=== PATIENT | female | born 1950 | race Caucasian/White ===

== ENCOUNTER 2018-09-07 17:40 | Observation (INO) ==
--- NOTE | 2018-09-07 17:53 | Emergency Department Note ---
Disposition Clinical Impression: TIA (transient ischemic attack) Disposition: Still a Patient Time of Disposition: 17:54 General Adult HPI - General Stated complaint: general illness Time Seen by Provider: 09/07/18 17:46 Source: patient, EMS Mode of arrival: EMS Limitations: no limitations Nursing Notes Reviewed: Yes Vital Signs Reviewed: Yes - History of Present Illness HPI Narrative: ED ATTESTATION NOTE: I examined this patient and my medical decision-making was reviewed with the Resident Physician/TILE TRIMMER/PA/Student. I have personally performed a face to face evaluation on this patient & I agree with the documented findings, disposition and treatment plan as described except to the extent set forth below. Patient was seen with emergency medicine resident Dr. Aamir Rede please see copy of his note for details of this encounter Briefly: 67-year-old female via EMS from [facility]. Patient presented with dizziness and slurred speech EMS report and unable to move legs patient arrived with an age of 1 prior history of TIA. At [facility] the CAT scan was down to the transporter here for further evaluation we will do a noncontrast head CT EKG screening labs with admission anticipated. Disposition pending. Patient stable. - Related Data Home Medications Medication Instructions Recorded Confirmed Amitriptyline [Elavil] 25 mg PO HS 04/30/15 04/30/15 Aspirin 81 mg PO DAILY 04/30/15 04/30/15 Clopidogrel [Plavix] 75 mg PO DAILY 04/30/15 04/30/15 Ezetimibe [Zetia] 10 mg PO DAILY 04/30/15 04/30/15 Furosemide [Lasix] 80 mg PO DAILY 04/30/15 04/30/15 Lisinopril [Zestril] 20 mg PO DAILY 04/30/15 04/30/15 Multivitamin [Multi-Day Vitamins] 1 tab PO DAILY 04/30/15 04/30/15 Omega3,5,6,7,9 No.1/[place] Oil 1 cap PO DAILY 04/30/15 04/30/15 [Complete [place] Softgel] Omeprazole [PriLOSEC] 40 mg PO DAILY 04/30/15 04/30/15 Ranolazine [Ranexa] 1,000 mg PO BID 04/30/15 04/30/15 Rosuvastatin [Crestor] 40 mg PO DAILY 04/30/15 04/30/15 Verapamil HCl [Verapamil ER] 240 mg PO DAILY 04/30/15 04/30/15 Allergies Allergy/AdvReac Type Severity Reaction Status Date / Time No Known Allergies Allergy Verified 04/30/15 11:41 Past Medical History - Past Medical History Medical history: Reports: coronary artery disease, dementia, hypertension Surgical history: Reports: cholecystectomy, hysterectomy, other - Social History Smoking Status: Former smoker Smokeless Tobacco Status: No Alcohol use: Reports: none Drug use: Reports: none
[2018-09-07 18:13] LABS: Basophils % 0.3 %; Eosinophils # 0.1 K/mcL (0.0-0.6); Eosinophils % 0.9 %; Hematocrit 38.6 % (35.3-44.9); Hemoglobin 12.7 g/dL (11.5-15.4); Immature Granulocytes % 0.4 % (0-4); Lymphocytes % 13.1 %; Mean Corpuscular HGB Conc 32.9 g/dL (31.6-35.5); Mean Corpuscular Hemoglobin 31.1 pg (28.0-33.3); Mean Corpuscular Volume 94.4 fL (83.0-100.0); Mean Platelet Volume 10.7 fL (9.4-12.4); Monocytes # 0.4 K/mcL (0.0-1.3); Monocytes % 4.6 %; Neutrophils # 6.1 K/mcL (1.6-8.9); Platelet Count 196 K/mcL (140-400); Red Blood Count 4.09 M/mcL (3.82-4.97); Red Cell Distribution Width 12.4 % (11.5-14.5); Segmented Neutrophils % 80.7 %
[2018-09-07 18:21] LABS: Prothrombin Time 11.6 Seconds (9.4-12.1)
--- NOTE | 2018-09-07 18:22 | Emergency Department Note ---
Disposition Clinical Impression: TIA (transient ischemic attack) Disposition: Admitted As Inpatient Condition: Undetermined Referrals: NONE,PCP [Primary Care Provider] - Forms: ED Satisfaction Letter Time of Disposition: 19:43 General Adult HPI - General Chief complaint: ED Neuro Symptoms/Deficit Stated complaint: general illness Time Seen by Provider: 09/07/18 17:46 Source: patient, EMS Mode of arrival: EMS Limitations: no limitations Nursing Notes Reviewed: Yes Vital Signs Reviewed: Yes - History of Present Illness HPI Narrative: 67-year-old female arrives to the emergency Department complaint of slurred speech and weakness as well as dizziness that started roughly 1530. The patient went to [place] emergency department and they were noted that her CT was down. The report received here at [facility] by [place] physician was that the patient was unable to ambulate and had no movement of her legs. Upon arrival via EMS to transport patient to the emergency part here and see because her CT machine was down, EMS noted the patient had an NIH of 0. The patient is not slurring her words and has full range of motion of bilateral upper and lower extremities without any other neurologic deficits. She is only complaining of some dizziness. Patient denies any other complaints at this time. She is lucid and answering questions appropriate. Initial evaluation the emergency department upon arrival demonstrates an NIH of 0. Pain Scale: 0 - Related Data Home Medications Medication Instructions Recorded Confirmed Amitriptyline [Elavil] 25 mg PO HS 04/30/15 04/30/15 Aspirin 81 mg PO DAILY 04/30/15 04/30/15 Clopidogrel [Plavix] 75 mg PO DAILY 04/30/15 04/30/15 Ezetimibe [Zetia] 10 mg PO DAILY 04/30/15 04/30/15 Furosemide [Lasix] 80 mg PO DAILY 04/30/15 04/30/15 Lisinopril [Zestril] 20 mg PO DAILY 04/30/15 04/30/15 Multivitamin [Multi-Day Vitamins] 1 tab PO DAILY 04/30/15 04/30/15 Omega3,5,6,7,9 No.1/[place] Oil 1 cap PO DAILY 04/30/15 04/30/15 [Complete [place] Softgel] Omeprazole [PriLOSEC] 40 mg PO DAILY 04/30/15 04/30/15 Ranolazine [Ranexa] 1,000 mg PO BID 04/30/15 04/30/15 Rosuvastatin [Crestor] 40 mg PO DAILY 04/30/15 04/30/15 Verapamil HCl [Verapamil ER] 240 mg PO DAILY 04/30/15 04/30/15 Allergies Allergy/AdvReac Type Severity Reaction Status Date / Time No Known Allergies Allergy Verified 04/30/15 11:41 All systems ED: reviewed and negative except as stated. Constitutional: Reports: weakness. Denies: fever, chills Eyes: Denies: vision change ENT ED: Denies: dental pain, congestion, dysphagia Cardiovascular: Denies: chest pain Respiratory: Denies: dyspnea Gastrointestinal: Denies: abdominal pain Genitourinary: Denies: urgency, dysuria Musculoskeletal: Denies: back pain Integumentary: Denies: rash Neurological: Denies: headache, weakness, numbness, paresthesias, confusion, a bnormal gait Past Medical History - Past Medical History Attestation: Yes The following information was validated with the patient. Source: patient, old records reviewed Medical history: Reports: coronary artery disease, dementia, hypertension Surgical history: Reports: cholecystectomy, hysterectomy, other MANAGER SWITCH history: Reports: no MANAGER SWITCH history - Social History Smoking Status: Former smoker Smokeless Tobacco Status: No Alcohol use: Reports: none Drug use: Reports: none Physical Exam - General Limitations: no limitations General appearance: alert, in no apparent distress - Head Head exam: atraumatic, normocephalic, normal inspection - Eye Eye exam: Present: normal appearance, PERRL, EOMI - ENT ENT exam: normal exam, normal oropharynx, mucous membranes moist - Neck Neck exam: Present: normal inspection, full ROM, trachea midline - Chest Chest inspection: Present: normal inspection, symmetric chest wall rise - Respiratory Respiratory exam: Present: normal lung sounds bilaterally - Cardiovascular Cardiovascular exam: Present: regular rate, normal rhythm, normal heart sounds - Abdominal Exam Abdominal exam: Present: soft, Non-Tender. Absent: tenderness, distention, guarding, rebound, rigidity - Extremities Exam Extremities exam: Present: normal inspection, full ROM, normal capillary refill. Absent: tenderness - Neurological Exam Neurological exam: Present: alert, oriented X3, CN II-XII intact - Expanded Neurological Exam Patient oriented to: Present: person, place, time Speech: Present: fluid speech Cranial nerves: EOM function (II, III, IV, ): Normal, facial sensation (V): Normal, facial palsy (VII): Normal Cerebellar function: finger to nose: Normal Motor strength - LUE: 5/5 Motor strength - RUE: 5/5 Motor strength - LLE: 5/5 Motor strength - RLE: 5/5 Sensory exam upper extremity: light touch: Normal Sensory exam lower extremity: light touch: Normal Coma Scale Eye Opening: Spontaneous Coma Scale Motor Response: Obeys Commands Coma Scale Verbal Response: Oriented Coma Scale Total: 15 - Skin Skin exam: Present: warm, dry, intact, normal color Course Vital Signs Temperature 97.9 F 09/07/18 17:49 Pulse Rate 59 09/07/18 17:49 Respiratory Rate 14 09/07/18 17:49 Blood Pressure 165/74 09/07/18 17:49 O2 Sat by Pulse Oximetry 99 09/07/18 17:49 Temperature 97.9 F 09/07/18 17:49 Pulse Rate 59 09/07/18 17:49 Respiratory Rate 14 09/07/18 17:49 Blood Pressure 165/74 09/07/18 17:49 O2 Sat by Pulse Oximetry 99 09/07/18 17:55 Oxygen Delivery Oxygen Delivery Room Air Medical Decision Making - MDM Narrative Medical decision making narrative: Patient's workup in our emergency department demonstrates no acute process. The patient has an NIH of 0. The patient was noted to have some slurring of speech dizziness as well as what is recorded at [facility] that she has weakness of bilateral extremity is present. Given this report hour was not confirmed with the patient, we are concerned about TIA. The patient will be admitted t will. We will administer aspirin. Head CT and lab work is otherwise baseline kidney injury. No further questions or concerns. She Will Be Admitted to the Hospital This Time. Accepted by Dr. Garcia. - Lab Data Lab results reviewed: Yes I reviewed the patient's lab results. Result diagrams: 09/07/18 17:58 09/07/18 17:58 Lab Results 09/07/18 09/07/18 09/07/18 Range/Units 17:58 17:58 17:58 WBC 7.5 (4.3-11.1) K/mcL RBC 4.09 (3.82-4.97) M/mcL Hgb 12.7 (11.5-15.4) g/dL Hct 38.6 (35.3-44.9) % MCV 94.4 (83.0-100.0) fL MCH 31.1 (28.0-33.3) pg MCHC 32.9 (31.6-35.5) g/dL RDW 12.4 (11.5-14.5) % Plt Count 196 (140-400) K/mcL MPV 10.7 (9.4-12.4) fL Immature Gran % 0.4 (0-4) % Seg Neutrophils % 80.7 % Lymphocytes % 13.1 % Monocytes % 4.6 % Eosinophils % 0.9 % Basophils % 0.3 % Neutrophils # 6.1 (1.6-8.9) K/mcL Lymphocytes # 1.0 (0.6-4.6) K/mcL Monocytes # 0.4 (0.0-1.3) K/mcL Eosinophils # 0.1 (0.0-0.6) K/mcL Basophils # 0.0 (0.0-0.2) K/mcL PT 11.6 (9.4-12.1) Seconds INR 1.0 APTT 31.5 (26.0-36.0) Seconds Sodium (136-145) mEq/L Potassium (3.5-5.1) mEq/L Chloride (98-107) mEq/L Carbon Dioxide (23-29) mEq/L BUN (8-23) mg/dL Creatinine (0.60-1.20) mg/dL Est GFR ( Amer) (> 60) Est GFR (Non-Af Amer) (> 60) BUN/Creatinine Ratio (6-26) Glucose (70-105) mg/dL Calculated Osmolality (280-300) Calcium (8.6-10.3) mg/dL Troponin I (< 0.04) ng/mL B-Natriuretic Peptide 74 (Less than 100) pg/mL 09/07/18 Range/Units 17:58 WBC (4.3-11.1) K/mcL RBC (3.82-4.97) M/mcL Hgb (11.5-15.4) g/dL Hct (35.3-44.9) % MCV (83.0-100.0) fL MCH (28.0-33.3) pg MCHC (31.6-35.5) g/dL RDW (11.5-14.5) % Plt Count (140-400) K/mcL MPV (9.4-12.4) fL Immature Gran % (0-4) % Seg Neutrophils % % Lymphocytes % % Monocytes % % Eosinophils % % Basophils % % Neutrophils # (1.6-8.9) K/mcL Lymphocytes # (0.6-4.6) K/mcL Monocytes # (0.0-1.3) K/mcL Eosinophils # (0.0-0.6) K/mcL Basophils # (0.0-0.2) K/mcL PT (9.4-12.1) Seconds INR APTT (26.0-36.0) Seconds Sodium 140 (136-145) mEq/L Potassium 3.5 (3.5-5.1) mEq/L Chloride 103 (98-107) mEq/L Carbon Dioxide 27 (23-29) mEq/L BUN 15 (8-23) mg/dL Creatinine 1.27 H (0.60-1.20) mg/dL Est GFR ( Amer) 51 L (> 60) Est GFR (Non-Af Amer) 42 L (> 60) BUN/Creatinine Ratio 12 (6-26) Glucose 106 H (70-105) mg/dL Calculated Osmolality 291 (280-300) Calcium 9.1 (8.6-10.3) mg/dL Troponin I < 0.03 (< 0.04) ng/mL B-Natriuretic Peptide (Less than 100) pg/mL - Radiology Data Radiology results reviewed: Yes I reviewed the patient's radiology results. Chest X-Ray 09/07/18 17:47 IMPRESSION: Stable exam. No acute cardiopulmonary findings. D/ / Veronica Harris MD / Veronica Harris MD Interpreting Provider: Veronica Harris MD Head CT 09/07/18 17:47 IMPRESSION: No acute intracranial abnormality. D/ / Caridad Thomas Cha, MD / Caridad Thomas Cha, MD Interpreting Provider: Caridad Thomas Cha, MD - EKG Data EKG #1 EKG attestation: Yes I reviewed and interpreted this EKG. EKG results narrative: Heart rate 55 beats for minute. Normal sinus rhythm. No ST elevation or ST depression. Inverted T waves in V1 and V2. No acute changes noted. QTC at 511.
[2018-09-07 18:24] LABS: Activated Partial Thrombo Time 31.5 Seconds (26.0-36.0)
[2018-09-07 18:34] LABS: BUN/Creatinine Ratio 12 (6-26); Blood Urea Nitrogen 15 mg/dL (8-23); Calcium 9.1 mg/dL (8.6-10.3); Carbon Dioxide 27 mEq/L (23-29); Chloride 103 mEq/L (98-107); Glucose 106 mg/dL (70-105); Osmolality,Calculated 291 (280-300); Potassium 3.5 mEq/L (3.5-5.1); Sodium 140 mEq/L (136-145); eGFR For Non-African Americans 42 (> 60)
[2018-09-07 18:35] LABS: Troponin I < 0.03 ng/mL (< 0.04)
[2018-09-07] MEDS ORDERED: Aspirin 325 MG TABLET PO ONE (19:14)
[2018-09-07] MEDS ORDERED: Naloxone 0.4 MG/ML INJ IVP PRN (23:02)
--- NOTE | 2018-09-07 23:41 | Internal Med History&Physical ---
Date of Encounter: 09/08/18 Time of Encounter: 22:00 Internal Medicine - H&P: HPI Chief complaint: Stroke Like Symptoms Admitted From: Hospital to Hospital Transfer Plans for Post Hospital Care: Home History of present illness: Ms. Brumfield is a 67 year old female with past medical history significant for coronary artery disease with stents 3, atrial fibrillation with previous ablation, hypertension, hyperlipidemia, TIA 3, chronic kidney disease, anxiety, depression, and dementia who presents from [facility] ER for complaints of slurred speech, difficulty ambulating, dizziness, headache that started around 11 AM today. Due to patients history of dementia, she is unable to fully recall her entire health history and reports being very forgetful despite being fully alert and oriented at this time. Symptoms resolved while at sending ER, however their CT scanner was down so she was sent to [facility] for further evaluation. Reports she has had previous TIAs in the past with similar symptoms. Symptoms remain resolved at this time however she states she still experiences intermittent dizziness with position changes and intermittent headache. ER obtained CT of head which showed no acute intracranial abnormality. ER also obtained chest x-ray which showed stable exam and no acute cardiopulmonary findings. ER reported NIHSS as a 0. ER reported EKG as sinus rhythm with no ST elevation or ST depression, inverted T waves in V1 and V2, with no acute changes noted, and QTc of 511. Currently denies any dizziness, numbness, tingling, chest pain, shortness of breath, cough, abdominal pain, bowel or bladder changes. Reports current intermittent headache. Also reports abdominal discomfort intermittently over the last 6 months but denies any at this time. Had previous inpatient workup in April 2015 for TIA vs syncope vs seizure including head MRI showing no acute intracranial abnormality or acute infarct. Had echocardiogram in January 2017 showing 60% EF. Had carotid doppler completed in April 2015 showing 40-59% stenosis of left mid ICA. Patient is unable to recall what providers she follows with regularly, however reports she frequently receives care through [facility] in [place], [place]. Checks blood pressures regularly at home and reports systolic has been averaging in the 120's. Past Med Surg Social Fam HX - Past Medical History Medical history: atrial fibrillation, coronary artery disease, dementia, hyperlipidemia, hypertension, renal disease Additional medical history: Cardiac stents x3 Psychiatric history: anxiety - Past Surgical History Surgical History: cholecystectomy, hysterectomy Additional surgical history: 3 cardiac stents, cardiac ablation for atrial fibrillation - Social History Smoking Status: Former smoker Smokeless Tobacco Status: No Alcohol use: none Drug use: none - Family History Mother Living Status: Hx Family Cardiac Disorders: Yes (cad) Father Living Status: Hx Family Respiratory Disorders: Yes (copd) Internal Medicine - H&P: Meds Amitriptyline [Elavil] 25 mg PO HS 04/30/15 [History] Aspirin 81 mg PO DAILY 04/30/15 [History] Clopidogrel [Plavix] 75 mg PO DAILY 04/30/15 [History] Ezetimibe [Zetia] 10 mg PO DAILY 04/30/15 [History] Furosemide [Lasix] 80 mg PO DAILY 04/30/15 [History] Lisinopril [Zestril] 20 mg PO DAILY 04/30/15 [History] Multivitamin [Multi-Day Vitamins] 1 tab PO DAILY 04/30/15 [History] Omega3,5,6,7,9 No.1/[place] Oil [Complete [place] Softgel] 1 cap PO DAILY 04/30/15 [History] Omeprazole [PriLOSEC] 40 mg PO DAILY 04/30/15 [History] Ranolazine [Ranexa] 1,000 mg PO BID 04/30/15 [History] Rosuvastatin [Crestor] 40 mg PO DAILY 04/30/15 [History] Verapamil HCl [Verapamil ER] 240 mg PO DAILY 04/30/15 [History] Allergy/AdvReac Type Severity Reaction Status Date / Time No Known Allergies Allergy Verified 04/30/15 11:41 All Systems PM: A 10-system review of systems was performed and is negative for pertinent findings except as documented above in the HPI. - Constitutional Vitals: Temp Pulse Resp BP Pulse Ox 98.0 F 56 16 181/76 97 09/07/18 21:32 09/07/18 21:32 09/07/18 21:32 09/07/18 21:32 09/07/18 21:32 Exam: General: Alert and oriented. Has chronic memory loss secondary to history of dementia. Skin:Normal color, no rash, no lesions. HEENT:Pupils equal, round and reactive. Cardiovascular:Normal S1 & S2, no rubs, murmurs or gallops. No JVD. Pulse regular. Lungs:Normal breath sounds, no wheezes or crackles. Abdomen:Soft, non-tender, no rigidity. Extremities:No deformity, no edema or tenderness, no joint swelling or clubbing. Neurological:Normal cognition and motor skills. GCS 15. NIHSS 0. Pulses:Carotid and radial pulses normal +2. Rest of the physical exam is non contributory. Internal Med - H&P Results - Labs CBC & Chem 7: 09/07/18 17:58 09/07/18 17:58 Labs: Short CBC 09/07/18 Range/Units 17:58 WBC 7.5 (4.3-11.1) K/mcL Hgb 12.7 (11.5-15.4) g/dL Hct 38.6 (35.3-44.9) % Plt Count 196 (140-400) K/mcL Neutrophils # 6.1 (1.6-8.9) K/mcL BMP 09/07/18 17:58 Sodium 140 Potassium 3.5 Chloride 103 Carbon Dioxide 27 BUN 15 Creatinine 1.27 H Glucose 106 H Calcium 9.1 Cardiac Enzymes 09/07/18 Range/Units 17:58 Troponin I < 0.03 (< 0.04) ng/mL - Impressions ITS Impressions Chest X-Ray 09/07/18 17:47 IMPRESSION: Stable exam. No acute cardiopulmonary findings. D/ / Veronica Harris MD / Veroinca Harris MD Interpreting Provider: Veronica Harris MD Head CT 09/07/18 17:47 IMPRESSION: No acute intracranial abnormality. D/ / Caridad Thomas Cha, MD / Caridad Thomas Cha, MD Interpreting Provider: Caridad Thomas Cha, MD - Assessment and Plan (1) Stroke-like symptoms Current Visit: Yes Status: Acute Assessment and plan: Presented to sending ER with slurred speech, headache, and dizziness that has since resolved. Now only complains of intermittent dizziness with position changes and headache. CT scanner down at sending ER so sent here, Head CT here showed no acute intracranial abnormality. Echocardiogram and carotid dopplers ordered. Neuro checks. Neurology consult ordered, will need called in a.m. (2) Dizziness Current Visit: Yes Status: Acute Assessment and plan: Acute on chronic. Plan as stated above. Orthostatics ordered. (3) Headache Current Visit: Yes Status: Acute Assessment and plan: Acute on chronic. Plan as stated above. PRN tylenol ordered. Qualifiers: Headache type: unspecified Intractability: not intractable Qualified Code(s): R51 - Headache (4) Chronic kidney disease Current Visit: Yes Status: Chronic Assessment and plan: Reports history of renal disease. Currently BUN 15, Creatinine 1.27, GFR 42. Most recent labs for comparison from 2016, shows renal function currently near baseline. Will order gentle IVF hydration. Avoid nephrotoxins. Repeat labs ordered. Qualifiers: Chronic kidney disease stage: unspecified stage Qualified Code(s): N18.9 - Chronic kidney disease, unspecified (5) Hypertension Current Visit: Yes Status: Chronic Assessment and plan: Continue home medications once verified. Qualifiers: Hypertension type: unspecified Qualified Code(s): I10 - Essential (primary) hypertension (6) Anxiety Current Visit: Yes Status: Chronic Assessment and plan: Continue home medications once verified. - Time Spent With Patient Total time spent is greater than 50% in coordination of care (as documented) at patient's floor/unit and/or counseling patient:
[2018-09-08] MEDS ORDERED: Acetaminophen 325 MG TABLET PO PRN (01:32)
[2018-09-08 03:16] LABS: Hematocrit 37.2 % (35.3-44.9); Hemoglobin 12.4 g/dL (11.5-15.4); Mean Corpuscular HGB Conc 33.3 g/dL (31.6-35.5); Mean Corpuscular Hemoglobin 31.5 pg (28.0-33.3); Mean Corpuscular Volume 94.4 fL (83.0-100.0); Mean Platelet Volume 10.5 fL (9.4-12.4); Platelet Count 192 K/mcL (140-400); Red Blood Count 3.94 M/mcL (3.82-4.97); Red Cell Distribution Width 12.4 % (11.5-14.5)
[2018-09-08 03:27] LABS: Prothrombin Time 11.5 Seconds (9.4-12.1)
[2018-09-08 03:37] LABS: Albumin 3.8 g/dL (3.5-5.7); Albumin/Globulin Ratio 1.7 (1.1-2.2); Bilirubin,Total 0.4 mg/dL (0.3-1.0); Calcium 8.8 mg/dL (8.6-10.3); Chol/HDL Ratio 2.5 (0-4.9); Globulin 2.2 g/dL (2.4-3.5)
[2018-09-08] MEDS ORDERED: 0.9 % Sodium Chloride 1,000 ML IVC SCH (06:00)
[2018-09-08 07:29] LABS: Estimated Average Glucose 108 mg/dl; Hemoglobin A1C 5.4 %
[2018-09-08 07:33] LABS: Calcium 8.8 mg/dL (8.6-10.3); Potassium 3.6 mEq/L (3.5-5.1)
[2018-09-08] MEDS: Aspirin 81 MG TAB.CHEW PO SCH (09:11)
--- NOTE | 2018-09-08 09:41 | Neurology - Consult Note ---
<Louie Brooks - Last Filed: 09/08/18 09:38> Date of Encounter: 09/08/18 Time of Encounter: 09:39 Assessment and Plan (1) Stroke-like symptoms Current Visit: Yes Status: Acute Presented with slurred speech, stuttering, ambulatory difficulty, dizziness, and headaches H/O TIAx3; Neuro consulted to r/o CVA/TIA Dizziness and stuttering persists Otherwise, neuro exam is nonfocal and nonlateralizing CT head obtained in the ED-negative for acute intracranial abnormality e.g. sinus rhythm without ST elevation or ST depression Proceed with stroke workup MRI brain pending Carotid duplex pending Echocardiogram pending On DAPT ASA and Plavix; continue C/w crestor Neuro assessments per protocol History of Present Illness Chief complaint: stroke-like symptoms HPI: Ms. Brumfield is a 67 year old female with a PMH of CAD w/PCI x3, A-FIB, HTN, HLD, TIAX3 CKD, anxiety and depression. She p/w a CC of stuttering with speech slurring, vertigo, ambulatory difficulties and headaches which began around 11 AM yesterday afternoon. She has a prior history of TIA but no CVA history. No family present at time of my assessment. The patient reports that her symptoms have improved significantly however dizziness and stuttering persists. She denies any visual changes, dysphagia, unilateral weakness or paresthesias. She reports that the dizziness is worse with position change and will go away with resting. CBC unremarkable, chemistry showed SCR around baseline. CT of head negative for acute intracranial abnormality. EKG shows normal sinus rhythm without ST-T wave changes concerning for ischemia. Troponin was negative. Neuro will follow to c/w w/u of CVA VS TIA. Past Med Surg Social Fam HX - Past Medical History Medical history: atrial fibrillation, coronary artery disease, dementia, hyperlipidemia, hypertension, renal disease Additional medical history: Cardiac stents x3 Psychiatric history: anxiety - Past Surgical History Surgical History: cholecystectomy, hysterectomy Additional surgical history: 3 cardiac stents, cardiac ablation for atrial fibrillation - Social History Smoking Status: Former smoker Smokeless Tobacco Status: No Alcohol use: none Drug use: none - Family History Mother Living Status: Hx Family Cardiac Disorders: Yes (cad) Father Living Status: Hx Family Respiratory Disorders: Yes (copd) Medications and Allergies Amitriptyline [Elavil] 25 mg PO HS 04/30/15 [History] Aspirin 81 mg PO DAILY 04/30/15 [History] Clopidogrel [Plavix] 75 mg PO DAILY 04/30/15 [History] Ezetimibe [Zetia] 10 mg PO DAILY 04/30/15 [History] Furosemide [Lasix] 80 mg PO DAILY 04/30/15 [History] Lisinopril [Zestril] 20 mg PO DAILY 04/30/15 [History] Multivitamin [Multi-Day Vitamins] 1 tab PO DAILY 04/30/15 [History] Omega3,5,6,7,9 No.1/[place] Oil [Complete [place] Softgel] 1 cap PO DAILY 04/30/15 [History] Omeprazole [PriLOSEC] 40 mg PO DAILY 04/30/15 [History] Ranolazine [Ranexa] 1,000 mg PO BID 04/30/15 [History] Rosuvastatin [Crestor] 40 mg PO DAILY 04/30/15 [History] Verapamil HCl [Verapamil ER] 240 mg PO DAILY 04/30/15 [History] Allergy/AdvReac Type Severity Reaction Status Date / Time No Known Allergies Allergy Verified 04/30/15 11:41 All Systems: The remainder of the systems were reviewed and are negative Review of Systems: REVIEW OF SYSTEMS GENERAL: Negative for any nausea, vomiting, fevers, chills NEUROLOGIC: Negative for any visual disturbances, facial asymmetry, dysphagia, hemiparesis, hemisensory deficits, ataxia, seizures, paralysis, tingling, numbness, unilateral weakness or numbness/tingling, rising from seated position Positive- stuttering, facial droop and slurred speech, vertigo CARDIAC: Negative for any chest pain, dyspnea or palpitations MUSCULOSKELETAL: negative for loss of strength Physical Examination - Vital Signs Vital Signs: Initial Vital Signs Temp Pulse Resp BP Pulse Ox 97.9 F 59 14 165/74 99 09/07/18 17:49 09/07/18 17:49 09/07/18 17:49 09/07/18 17:49 09/07/18 17:49 - Exam Exam: Examination: General Examination: *CONSTITUTIONAL: Alert and oriented x3, no acute distress *GENERAL APPEARANCE OF PATIENT appears healthy and well groomed *EYES: pupils equal, round, reactive to light and accommodation, conjunctiva clear without masses or ulcerations, fundi normal. *CARDIOVASCULAR no peripheral edema, distal temperature normal, dorsalis pedis pulses normal. see vitals Musculoskeletal: *GAIT AND STATION normal, with normal Romberg testing, no abnormalities such as broad base gait or spasticity *ASSESSMENT OF MUSCLE STRENGTH IN THE UPPER AND LOWER EXTREMITIES bilateral deltoid, bicep, tricep, industrial relations counselor strength, hip flexors ,anterior tibialis, dorsoflexion of the foot 5/5 *MUSCLE TONE IN THE UPPER AND LOWER EXTREMITIES normal. No abnormal movements, fasciculations or atrophy identified. Neurological: *ORIENTATION to person, situation, time and place *RECURRENT AND REMOTE MEMORY intact *ATTENTION AND CONCENTRATION are normal *LANGUAGE FUNCTION no significant aphasia or dysarthia was noted. Mild speech stuttering pattern *FUND OF KNOWLEDGE aware of current events, past history, vocabulary *MENTAL attention span and concentration normal. *CN II optic fundi were normal, no papilledema noted. *CN III,IV, PERRLA extraocular eye movements were full, no nystagmus and no ptosis noted. *CN V shows normal sensation and jaw opens symmetrically. *CN VII shows normal facial movement symmetrically, upper and lower bilaterally. *CN VIII shows no significant hearing loss on exam *CN IX,,X palate elevated symmetrically *CN XI normal strength in the sternocleidomastoid muscles, symmetrical shoulder shrugging. *CN XII tongue protruded in the midline, with normal strength and movement. *SENSORY EXAMINATION light touch intact *REFLEXES: deep tendon reflexes were normal and symmetrical , grade 2/4 diffusely, no pathological reflexes were noted. *CEREBELLAR TESTING normal finger to nose, heel/knee/saldaña *PAIN LEVEL 0/10 Results - Laboratory Findings CBC and BMP: 09/08/18 02:48 09/08/18 06:58 Abnormal lab findings: Abnormal lab results Potassium 3.0 mEq/L (3.5-5.1) L 09/08/18 02:48 1.27 mg/dL (0.60-1.20) H 09/07/18 17:58 Est GFR ( Amer) 56 (> 60) L 09/08/18 06:58 Est GFR (Non-Af Amer) 46 (> 60) L 09/08/18 06:58 Glucose 106 mg/dL (70-105) H 09/07/18 17:58 6.0 g/dL (6.4-8.9) L 09/08/18 02:48 2.2 g/dL (2.4-3.5) L 09/08/18 02:48 - Diagnostic Findings Additional findings: CT/CT head/brain wo con IMPRESSION: No acute intracranial abnormality. Consult Discharge Plan - Plan Referrals: Bob Arredondo MD [Partnered Physician] - 09/15/18 2:45 pm <Mary Beth Leija I - Last Filed: 09/08/18 16:01> Date of Encounter: 09/08/18 Assessment and Plan (1) Stroke-like symptoms Current Visit: Yes Status: Acute I have personally performed a face to face diagnostic evaluation, including HPI, EXAM, which is included in the Assesment and plan, which was discussed with Louie Brooks CNP, I agree with the above outlined documentation. This patient's symptoms are concerning off TIA but at the same time she was describing his his stuttering of his speech which is not a very common with a TIA or the stroke most of the time it is psychological especially in this age group. Regardless recommend a stroke workup continue on aspirin for now continue to monitor her blood pressure and blood sugar. Mary Beth Leija MD. Neurology History of Present Illness HPI: Ms. Brumfield is a 67 year old female All Systems: The remainder of the systems were reviewed and are negative Physical Examination - Vital Signs Vital Signs: Initial Vital Signs Temp Pulse Resp BP Pulse Ox 97.9 F 59 14 165/74 99 09/07/18 17:49 09/07/18 17:49 09/07/18 17:49 09/07/18 17:49 09/07/18 17:49 Results - Laboratory Findings CBC and BMP: 09/08/18 02:48 09/08/18 06:58 Abnormal lab findings: Abnormal lab results Potassium 3.0 mEq/L (3.5-5.1) L 09/08/18 02:48 1.27 mg/dL (0.60-1.20) H 09/07/18 17:58 Est GFR ( Amer) 56 (> 60) L 09/08/18 06:58 Est GFR (Non-Af Amer) 46 (> 60) L 09/08/18 06:58 Glucose 106 mg/dL (70-105) H 09/07/18 17:58 6.0 g/dL (6.4-8.9) L 09/08/18 02:48 2.2 g/dL (2.4-3.5) L 09/08/18 02:48
--- NOTE | 2018-09-08 10:02 | Electrocardiograph Report ---
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
--- NOTE | 2018-09-08 11:11 | Internal Med Progress Note ---
Hospitalist Progress Note - Encounter Date of Encounter: 09/08/18 Time of Encounter: 11:08 - Subjective Interval History: Patient seen and examined in the room. Reported vertigo/lightheadedness with position change. Also reported ataxia while walking. Denies weakness, numbness/tingling, dysphagia, or dysarthria. - Exam Vitals: Temp Pulse Resp BP Pulse Ox 97.5 F L 62 13 186/76 95 09/08/18 07:33 09/08/18 07:33 09/08/18 07:33 09/08/18 07:33 09/08/18 07:33 Exam: General: Alert and oriented. Has chronic memory loss secondary to history of dementia. Skin:Normal color, no rash, no lesions. HEENT:Pupils equal, round and reactive. Cardiovascular:Normal S1 & S2, no rubs, murmurs or gallops. No JVD. Pulse regular. Lungs:Normal breath sounds, no wheezes or crackles. Abdomen:Soft, non-tender, no rigidity. Extremities:No deformity, no edema or tenderness, no joint swelling or clubbing. Neurological:Normal cognition and motor skills. GCS 15. NIHSS 0. Pulses:Carotid and radial pulses normal +2. Rest of the physical exam is non contributory. - Assessment and Plan (1) Stroke-like symptoms Current Visit: Yes Status: Acute Assessment and Plan: 09/07 Presented to sending ER with slurred speech, headache, and dizziness that has since resolved. Now only complains of intermittent dizziness with position changes and headache. CT scanner down at sending ER so sent here, Head CT here showed no acute intracranial abnormality. Echocardiogram and carotid dopplers ordered. Neuro checks. Neurology consult ordered, will need called in a.m. 09/08 Pending orthostatic vital signs. MRI brain has no acute CVA. Neurology following, appreciate input and help. (2) Dizziness Current Visit: Yes Status: Acute Assessment and Plan: Patient described dizziness as both vertigo and lightheadedness, it was also positional, transient and intermittent. Clinical picture fits in BPPV. May consult OT for Dicks/Hallpike maneuver. (3) Headache Current Visit: Yes Status: Acute Assessment and Plan: Acute on chronic. Plan as stated above. PRN tylenol ordered. (4) Hypertension Current Visit: Yes Status: Chronic Assessment and Plan: Continue home medications. (5) Anxiety Current Visit: Yes Status: Chronic Assessment and Plan: Continue home medications. (6) Chronic kidney disease Current Visit: Yes Status: Chronic Assessment and Plan: Reports history of renal disease. Currently BUN 15, Creatinine 1.27, GFR 42. Most recent labs for comparison from 2016, shows renal function currently near baseline. Will order gentle IVF hydration. Avoid nephrotoxins. Repeat labs ordered. - Time Spent with Patient Total time spent is greater than 50% in coordination of care (as documented) at patient's floor/unit and/or counseling patient: Greater than 35 minutes Plan of Care Discussed with: patient Internal Medicine: Result - Labs CBC & Chem 7: 09/08/18 02:48 09/08/18 06:58 Labs: Short CBC 09/07/18 09/08/18 Range/Units 17:58 02:48 WBC 7.5 4.5 (4.3-11.1) K/mcL Hgb 12.7 12.4 (11.5-15.4) g/dL Hct 38.6 37.2 (35.3-44.9) % Plt Count 196 192 (140-400) K/mcL Neutrophils # 6.1 (1.6-8.9) K/mcL BMP 09/07/18 09/08/18 09/08/18 17:58 02:48 06:58 Sodium 140 141 142 Potassium 3.5 3.0 L 3.6 Chloride 103 105 105 Carbon Dioxide 27 25 27 BUN 15 14 13 Creatinine 1.27 H 1.20 1.18 Glucose 106 H 82 83 Calcium 9.1 8.8 8.8 Cardiac Enzymes 09/07/18 Range/Units 17:58 Troponin I < 0.03 (< 0.04) ng/mL Liver Function 09/08/18 Range/Units 02:48 Total Bilirubin 0.4 (0.3-1.0) mg/dL AST 21 (13-39) Units/L ALT 16 (7-52) Units/L Alkaline Phosphatase 59 (34-104) Units/L Albumin 3.8 (3.5-5.7) g/dL - ABG Interpretation ABG results: PT/INR, D-dimer PT 11.5 Seconds (9.4-12.1) 09/08/18 02:48 - Impressions Impressions Chest X-Ray 05/20/19 17:47 IMPRESSION: Stable exam. No acute cardiopulmonary findings. D/ / Veronica Harris MD / Veronica Harris MD Interpreting Provider: Veronica Harris MD Head CT 09/07/18 17:47 IMPRESSION: No acute intracranial abnormality. D/ / Caridad Thomas Cha, MD / Caridad Thomas Cha, MD Interpreting Provider: Caridad Thomas Cha, MD Brain MRI 09/08/18 09:38 IMPRESSION: 1. No acute intracranial abnormality. Specifically, no acute infarction. 2. Mild parenchymal volume loss. Minimal chronic microvascular ischemic changes. D/ / Nehemias Verdin MD / Nehemias Verdin MD Interpreting Provider: Nehemias Verdin MD Consult Discharge Plan - Plan Referrals: NONE,PCP [Primary Care Provider] - (3) Headache Qualifiers: Headache type: unspecified Intractability: not intractable Qualified Code(s): R51 - Headache (4) Hypertension Qualifiers: Hypertension type: unspecified Qualified Code(s): I10 - Essential (primary) hypertension (6) Chronic kidney disease Qualifiers: Chronic kidney disease stage: unspecified stage Qualified Code(s): N18.9 - Chronic kidney disease, unspecified
[2018-09-09] MEDS: Aspirin 81 MG TAB.CHEW PO SCH (09:12)
[2018-09-09] MEDS: Ranolazine 500 MG TAB.ER.12H PO SCH ×2 (09:12→21:01)
[2018-09-09] MEDS: Furosemide 40 MG TABLET PO SCH (09:12)
--- NOTE | 2018-09-09 09:36 | Neurology Progress Note ---
<Louie Brooks J - Last Filed: 09/09/18 09:33> Date of Encounter: 09/09/18 Time of Encounter: 09:33 Assessment and Plan (1) Stroke-like symptoms Current Visit: Yes Status: Acute p/w slurred speech, stuttering, ambulatory difficulty, dizziness and headaches Neuro consulted to rule out CVA-TIA Symptoms have resolved and patient report she is back to baseline Neuro imaging including CT of head and MRI of brain unremarkable Carotid duplex scans with minimal plaque in the right carotid system, 40-50% stenosis in the left ICA Echocardiogram shows mild MR/AR Neurological exam completed, no focal deficits found Consider TIA as constant ambulatory difficulty and dizziness as well as slurred speech especially with resolution of symptoms within 24 hours Discussed aggressive risk factor modifications Continue with aspirin and Plavix, continue Crestor Recommend PT/OT evaluation Neurology will sign off at this time I have personally performed a face to face diagnostic evaluation, including HPI, EXAM, which is included in the Assesment and plan, which was discussed with Louie Brooks CNP, I agree with the above outlined documentation. This patient's symptoms are concerning off TIA but at the same time she was describing his his stuttering of his speech which is not a very common with a TIA or the stroke most of the time it is psychological especially in this age group. Regardless recommend a stroke workup continue on aspirin for now continue to monitor her blood pressure and blood sugar. Mary Beth Leija MD. Neurology Subjective Principal diagnosis: stroke like symptoms Interval history: Patient was seen in f/u for slurred speech , stuttering, dizziness and ambulatory difficulty. Stroke workup implemented and was ultimately negative with unremarkable MRI, echocardiogram and mild MR and AR, and carotid duplex scans revealing minor plaque in the right carotid artery and 40-50% stenosis in the left ICA. Patient reports that ambulatory difficulty and dizziness have resolved, slurred speech since resolved. She does notice some intermittent stuttering but no worse than normal. No acute complaints. Neurologically she remained stable overnight. Objective - Constitutional Vitals: Temp Pulse Resp BP Pulse Ox 98.3 F 58 16 161/67 95 09/09/18 08:03 09/09/18 08:03 09/09/18 08:03 09/09/18 08:03 09/09/18 08:03 Exam: Examination: General Examination: *CONSTITUTIONAL: Alert and oriented x3, no acute distress *GENERAL APPEARANCE OF PATIENT appears healthy and well groomed *EYES: pupils equal, round, reactive to light and accommodation, conjunctiva clear without masses or ulcerations, fundi normal. *CARDIOVASCULAR no peripheral edema, distal temperature normal, dorsalis pedis pulses normal. see vitals Musculoskeletal: *GAIT AND STATION normal, with normal Romberg testing, no abnormalities such as broad base gait or spasticity *ASSESSMENT OF MUSCLE STRENGTH IN THE UPPER AND LOWER EXTREMITIES bilateral deltoid, bicep, tricep, green jobs trainer strength, hip flexors ,anterior tibialis, dorsoflexion of the foot 5/5 *MUSCLE TONE IN THE UPPER AND LOWER EXTREMITIES normal. No abnormal movements, fasciculations or atrophy identified. Neurological: *ORIENTATION to person, situation, time and place *RECURRENT AND REMOTE MEMORY intact *ATTENTION AND CONCENTRATION are normal *LANGUAGE FUNCTION no significant aphasia or dysarthia was noted. No stuttering speech pattern noted today on exam *FUND OF KNOWLEDGE aware of current events, past history, vocabulary *MENTAL attention span and concentration normal. *CN II optic fundi were normal, no papilledema noted. *CN III,IV, PERRLA extraocular eye movements were full, no nystagmus and no ptosis noted. *CN V shows normal sensation and jaw opens symmetrically. *CN VII shows normal facial movement symmetrically, upper and lower bilaterally. *CN VIII shows no significant hearing loss on exam *CN IX,,X palate elevated symmetrically *CN XI normal strength in the sternocleidomastoid muscles, symmetrical shoulder shrugging. *CN XII tongue protruded in the midline, with normal strength and movement. *SENSORY EXAMINATION light touch intact *REFLEXES: deep tendon reflexes were normal and symmetrical , grade 2/4 diffusely, no pathological reflexes were noted. *CEREBELLAR TESTING normal finger to nose, heel/knee/saldaña *PAIN LEVEL 0/10 Results - Laboratory Findings CBC and BMP: 09/08/18 02:48 09/08/18 06:58 Abnormal lab findings: Abnormal lab results Potassium 3.0 mEq/L (3.5-5.1) L 09/08/18 02:48 1.27 mg/dL (0.60-1.20) H 09/07/18 17:58 Est GFR ( Amer) 56 (> 60) L 09/08/18 06:58 Est GFR (Non-Af Amer) 46 (> 60) L 09/08/18 06:58 Glucose 106 mg/dL (70-105) H 09/07/18 17:58 POC Glucose 125 mg/dL (70-99) H 09/08/18 20:05 6.0 g/dL (6.4-8.9) L 09/08/18 02:48 2.2 g/dL (2.4-3.5) L 09/08/18 02:48 Consult Discharge Plan - Plan Referrals: Bob Arredondo MD [Partnered Physician] - 09/15/18 2:45 pm <Mary Beth Leija I - Last Filed: 09/09/18 16:11> Date of Encounter: 09/09/18 Assessment and Plan (1) Stroke-like symptoms Current Visit: Yes Status: Acute I have personally performed a face to face diagnostic evaluation, including HPI, EXAM, which is included in the Assesment and plan, which was discussed with Louie Brooks CNP, I agree with the above outlined documentation. Mary Beth Leija MD. Neurology Objective - Constitutional Vitals: Temp Pulse Resp BP Pulse Ox 98.3 F 67 16 147/79 95 09/09/18 15:16 09/09/18 15:16 09/09/18 15:16 09/09/18 15:16 09/09/18 15:16 Results - Laboratory Findings CBC and BMP: 09/08/18 02:48 09/08/18 06:58 Abnormal lab findings: Abnormal lab results Potassium 3.0 mEq/L (3.5-5.1) L 09/08/18 02:48 1.27 mg/dL (0.60-1.20) H 09/07/18 17:58 Est GFR ( Amer) 56 (> 60) L 09/08/18 06:58 Est GFR (Non-Af Amer) 46 (> 60) L 09/08/18 06:58 Glucose 106 mg/dL (70-105) H 09/07/18 17:58 POC Glucose 125 mg/dL (70-99) H 09/08/18 20:05 6.0 g/dL (6.4-8.9) L 09/08/18 02:48 2.2 g/dL (2.4-3.5) L 09/08/18 02:48
--- NOTE | 2018-09-09 13:34 | Electrocardiograph Report ---
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
--- NOTE | 2018-09-09 18:20 | Internal Med Progress Note ---
Hospitalist Progress Note - Encounter Date of Encounter: 09/09/18 Time of Encounter: 11:00 - Subjective Interval History: Patient was seen and examined at bedside I did discuss results of MRI and neurology recommendations with the patient and family who are at bedside. Also discussed patient to be evaluated by PT OT as well as concerns for QTC prolongat ion. We will adjust medications await PT OT evaluation. Reviewed with patient who verbalized understanding. - Exam Vitals: Temp Pulse Resp BP Pulse Ox 98.3 F 67 16 147/79 95 09/09/18 15:16 09/09/18 15:16 09/09/18 15:16 09/09/18 15:16 09/09/18 15:16 Exam: General: Alert and oriented. Has chronic memory loss secondary to history of dementia. Skin:Normal color, no rash, no lesions. HEENT:Pupils equal, round and reactive. Cardiovascular:Normal S1 & S2, no rubs, murmurs or gallops. No JVD. Pulse regular. Lungs:Normal breath sounds, no wheezes or crackles. Abdomen:Soft, non-tender, no rigidity. Extremities:No deformity, no edema or tenderness, no joint swelling or clubbing. Neurological:Normal cognition and motor skills. GCS 15. NIHSS 0. Pulses:Carotid and radial pulses normal +2. Rest of the physical exam is non contributory. - Assessment and Plan (1) Stroke-like symptoms Current Visit: Yes Status: Acute Assessment and Plan: 09/07 Presented to sending ER with slurred speech, headache, and dizziness that has since resolved. Now only complains of intermittent dizziness with position changes and headache. CT scanner down at sending ER so sent here, Head CT here showed no acute intracranial abnormality. Echocardiogram and carotid dopplers ordered. Neuro checks. Neurology consult ordered, will need called in a.m. 09/08 Pending orthostatic vital signs. MRI brain has no acute CVA. Neurology following, appreciate input and help. 09/09 MR brain with no acute CVA neurology recommending PT OT evaluation and continued aspirin and Plavix as well as Crestor. Concern for QTC prolongation QTC on presentation was 551 we will recheck EKG and adjust medications (2) Dizziness Current Visit: Yes Status: Acute Assessment and Plan: Patient described dizziness as both vertigo and lightheadedness, it was also positional, transient and intermittent. Clinical picture fits in BPPV. May consult OT for Dicks/Hallpike maneuver. Patient has chronic history of vertigo and is currently on meclizine which we will continue (3) Headache Current Visit: Yes Status: Acute Assessment and Plan: Acute on chronic. Plan as stated above. PRN tylenol ordered.-Currently no headache voiced (4) Hypertension Current Visit: Yes Status: Chronic Assessment and Plan: I will decrease Coreg due to bradycardia and add lisinopril continue with Lasix monitor closely (5) Anxiety Current Visit: Yes Status: Chronic Assessment and Plan: Continue home medications. (6) Chronic kidney disease Current Visit: Yes Status: Chronic Assessment and Plan: Reports history of renal disease. Stable at this time Most recent labs for comparison from 2016, shows renal function currently near baseline. Will order gentle IVF hydration. Avoid nephrotoxins. Repeat labs ordered. (7) QT prolongation Current Visit: Yes Status: Acute Assessment and Plan: On presentation patient had QTC of 551 currently on Namenda as well as Aricept we will decrease the dose also decrease carvedilol recheck EKG and monitor closely - Time Spent with Patient Total time spent is greater than 50% in coordination of care (as documented) at patient's floor/unit and/or counseling patient: Internal Medicine: Result - Labs CBC & Chem 7: 09/08/18 02:48 09/08/18 06:58 - ABG Interpretation ABG results: PT/INR, D-dimer PT 11.5 Seconds (9.4-12.1) 09/08/18 02:48 Consult Discharge Plan - Plan Referrals: Bob Arredondo MD [Partnered Physician] - 09/15/18 2:45 pm (3) Headache Qualifiers: Headache type: unspecified Intractability: not intractable Qualified Code(s): R51 - Headache (4) Hypertension Qualifiers: Hypertension type: unspecified Qualified Code(s): I10 - Essential (primary) hypertension (6) Chronic kidney disease Qualifiers: Chronic kidney disease stage: unspecified stage Qualified Code(s): N18.9 - Chronic kidney disease, unspecified
[2018-09-10 06:42] LABS: Basophils % 0.4 %; Eosinophils # 0.1 K/mcL (0.0-0.6); Eosinophils % 2.1 %; Hematocrit 40.3 % (35.3-44.9); Hemoglobin 13.3 g/dL (11.5-15.4); Immature Granulocytes % 0.2 % (0-4); Lymphocytes # 1.4 K/mcL (0.6-4.6); Lymphocytes % 24.6 %; Mean Corpuscular Hemoglobin 31.4 pg (28.0-33.3); Mean Platelet Volume 10.8 fL (9.4-12.4); Monocytes # 0.4 K/mcL (0.0-1.3); Monocytes % 7.7 %; Neutrophils # 3.7 K/mcL (1.6-8.9); Platelet Count 212 K/mcL (140-400); Red Blood Count 4.24 M/mcL (3.82-4.97); Red Cell Distribution Width 12.5 % (11.5-14.5)
[2018-09-10 06:58] LABS: Calcium 8.7 mg/dL (8.6-10.3); Potassium 3.5 mEq/L (3.5-5.1)
[2018-09-10 08:06] VITALS: BP 127/79
[2018-09-10] MEDS: Furosemide 40 MG TABLET PO SCH (08:39)
[2018-09-10] MEDS: Aspirin 81 MG TAB.CHEW PO SCH (08:39)
[2018-09-10] MEDS: Ranolazine 500 MG TAB.ER.12H PO SCH (08:39)
--- NOTE | 2018-09-10 09:24 | Discharge Summary ---
- NOTES TO OUTPATIENT PROVIDER Notes to Outpatient Provider: possible TIA seen by neurology cont with ASA Plavix and crestor - PT/OT as outpatient. Had qtc prolongation will need monitor as outpatient - repeat ekg- decreased Namenda Aricept as well as coreg adjust as neeeded Date of Encounter: 09/10/18 Time of Encounter: 09:19 - Discharge Diagnosis (1) Stroke-like symptoms Priority: Primary Status: Acute (2) Dizziness Priority: Secondary Status: Acute (3) Headache Priority: Secondary Status: Acute Qualifiers: Headache type: unspecified Headache chronicity pattern: unspecified pattern Intractability: not intractable Qualified Code(s): R51 - Headache (4) Hypertension Priority: Secondary Status: Chronic Qualifiers: Hypertension type: unspecified Qualified Code(s): I10 - Essential (primary) hypertension (5) Anxiety Priority: Secondary Status: Chronic (6) Chronic kidney disease Priority: Secondary Status: Chronic Qualifiers: Chronic kidney disease stage: unspecified stage Qualified Code(s): N18.9 - Chronic kidney disease, unspecified (7) QT prolongation Priority: Secondary Status: Acute Hospital course: Ms. Brumfield is a 67 year old female astragal history of CAD with PCI 3 A. fib hypertension hyperlipidemia TA 3 CTD anxiety and depression. Presented to [facility] ED with complaints of stuttering/speech slurring vertigo ambulatory difficulties was seen by neurology MRI with nothing acute carotid duplex right side nonstenotic plaque left side 49% stenosis of the ICA follow-up as outpatient cardiac echo with EF 60% no PFO-continue with aspirin and Plavix statin. Also had QTC prolongation at 551. Decrease Namenda Aricept as well as Coreg repeat EKG with improved QTC we will monitor as outpatient lisinopril added for blood pressure control. Patient was evaluated PTOT recommending outpatient follow-up. Advised patient follow-up with primary care provider currently patient is hemodynamically stable and ready for discharge. - Time Spent with Patient Total time spent providing and/or coordinating discharge services: - Discharge Medications Prescriptions: New Donepezil [Aricept] 2.5 mg PO HS #30 tablet Aspirin 81 mg PO DAILY tab.chew Carvedilol [Coreg] 3.125 mg PO BIDWM #30 tablet Memantine [Namenda] 5 mg PO BID #60 tablet Lisinopril [Zestril] 5 mg PO DAILY #30 tablet Continued Clopidogrel [Plavix] 75 mg PO DAILY Rosuvastatin [Crestor] 40 mg PO DAILY Ranolazine [Ranexa] 1,000 mg PO BID Meclizine HCl [Verticalm] 25 mg PO BID PRN PRN Reason: Vertigo Furosemide [Lasix] 40 mg PO DAILY Discontinued Memantine HCl [Memantine HCl ER] 28 mg PO HS Donepezil [Aricept] 5 mg PO DAILY Carvedilol [Coreg] 6.25 mg PO BID No Action Ezetimibe [Zetia] 10 mg PO DAILY Home Medications: Clopidogrel [Plavix] 75 mg PO DAILY 04/30/15 [History] Ezetimibe [Zetia] 10 mg PO DAILY 04/30/15 [History] Ranolazine [Ranexa] 1,000 mg PO BID 04/30/15 [History] Rosuvastatin [Crestor] 40 mg PO DAILY 04/30/15 [History] Furosemide [Lasix] 40 mg PO DAILY 09/08/18 [History] Meclizine HCl [Verticalm] 25 mg PO BID PRN 09/08/18 [History] Aspirin 81 mg PO DAILY tab.chew 09/10/18 [Rx] Carvedilol [Coreg] 3.125 mg PO BIDWM #30 tablet 09/10/18 [Rx] Donepezil [Aricept] 2.5 mg PO HS #30 tablet 09/10/18 [Rx] Lisinopril [Zestril] 5 mg PO DAILY #30 tablet 09/10/18 [Rx] Memantine [Namenda] 5 mg PO BID #60 tablet 09/10/18 [Rx] Allergies/Adverse Reactions: Allergy/AdvReac Type Severity Reaction Status Date / Time No Known Allergies Allergy Verified 09/08/18 17:02 Date of admission: 09/07/18 20:06 Primary care physician: PCP NONE Consults: 09/07/18 23:02 Consult to Neurology [CONS] Routine Consulting Provider: [facility] Reason for Consult: Previous workup in April 2015 for TIA vs Seizure vs Syncope. Presents from [facility] ER due to CT scanner being down for headache, slurred speech, and dizziness starting today around 11 am and resolving upon presentation to ER. Call Completed: No 09/09/18 14:42 Consult to Physical Therapy [CONS] Routine Comment: Evaluate, develop and implement POC Reason for Consult: dc planning Does patient have active BEDREST order?: No Is patient medically & hemodynamically stable?: Yes Patient assessed for mobility or mobilized this visit?: No Discharging clinician: Clarice Davis Anticipated date of discharge: 09/10/18 - Constitutional Vitals: Temp Pulse Resp BP Pulse Ox 97.6 F 69 16 127/79 94 09/10/18 08:05 09/10/18 08:05 09/10/18 08:05 09/10/18 08:05 09/10/18 08:45 Exam: General: Alert and oriented. Has chronic memory loss secondary to history of dementia. Skin:Normal color, no rash, no lesions. HEENT:Pupils equal, round and reactive. Cardiovascular:Normal S1 & S2, no rubs, murmurs or gallops. No JVD. Pulse regular. Lungs:Normal breath sounds, no wheezes or crackles. Abdomen:Soft, non-tender, no rigidity. Extremities:No deformity, no edema or tenderness, no joint swelling or clubbing. Neurological:Normal cognition and motor skills. GCS 15. NIHSS 0. Pulses:Carotid and radial pulses normal +2. Rest of the physical exam is non contributory. - Patient Status Disposition: Home, Self-Care Condition: Good Functional capacity at discharge: independent ambulation Overall status at discharge: patient is back to baseline - Discharge Instructions Instructions: Transient Ischemic Attack (DC), Chronic Kidney Disease (DC), Vertigo (DC), Acute Headache (DC), Chronic Hypertension (DC), Anxiety (DC) Follow Up With: Bob Arredondo MD [Partnered Physician] - 09/15/18 2:45 pm - Diet and Activity Activity: increase activity as tolerated Diet: advance to your usual diet
== END 2018-09-10 11:49 | disposition home or self-care (01) ==
LOC: 3BNU 17:40 → EMEROOARM 17:40 → 3BNU 20:42
PROVIDERS: ADMIT Family Medicine; ATTEND Family Medicine

== ENCOUNTER 2019-07-05 10:00 | Inpatient (IN) ==
[2019-07-05 10:26] LABS: Basophils # 0.1 K/mcL (0.0-0.2); Basophils % 0.4 %; Eosinophils # 0.1 K/mcL (0.0-0.6); Eosinophils % 0.6 %; Hemoglobin 14.5 g/dL (11.5-15.4); Immature Granulocytes % 0.8 % (0-4); Lymphocytes # 1.9 K/mcL (0.6-4.6); Lymphocytes % 15.1 %; Mean Corpuscular HGB Conc 33.7 g/dL (31.6-35.5); Mean Corpuscular Hemoglobin 31.2 pg (28.0-33.3); Mean Corpuscular Volume 92.5 fL (83.0-100.0); Mean Platelet Volume 11.4 fL (9.4-12.4); Monocytes # 0.7 K/mcL (0.0-1.3); Monocytes % 5.5 %; Neutrophils # 9.8 K/mcL (1.6-8.9); Platelet Count 190 K/mcL (140-400); Red Blood Count 4.65 M/mcL (3.82-4.97); Red Cell Distribution Width 12.4 % (11.5-14.5); Segmented Neutrophils % 77.6 %; White Blood Count 12.6 K/mcL (4.3-11.1)
[2019-07-05] MEDS ORDERED: 0.9 % Sodium Chloride 1,000 ML IVC ONE (10:30)
[2019-07-05 10:44] LABS: Calcium 9.3 mg/dL (8.6-10.3); Potassium 3.3 mEq/L (3.5-5.1)
[2019-07-05 12:08] LABS: Bilirubin,Urine Negative (Negative); Blood,Urine Trace (Negative); Clarity,Urine Clear (Clear); Color,Urine Yellow (Yellow); Glucose,Urine (UA) Normal (Normal); Ketones,Urine Negative (Negative); Leukocyte Esterase,Urine Trace (Negative); Nitrite,Urine Negative (Negative); PH,Urine 6.5 pH Units (5.0-8.0); Protein,Urine Negative (Neg-Trace); Urobilinogen,Urine Normal (Normal)
[2019-07-05 12:11] LABS: Bacteria,Urine None Seen per hpf (None-Few); Hyaline Casts,Urine None Seen per lpf (None-Few); Squamous Epithelial Cell,Urine None Seen per lpf (None-Few); WBC,Urine 0-3 per hpf (0-3)
[2019-07-05 12:51] LABS: RBC,Urine 0-3 per hpf (0-3)
[2019-07-05] MEDS ORDERED: Naloxone 0.4 MG/ML INJ IVP PRN (13:28)
[2019-07-05] MEDS ORDERED: Ondansetron 4 MG/2 ML VIAL IVP PRN (13:28)
[2019-07-05] MEDS ORDERED: *HR* LORazepam 2 MG/ML VIAL IVP PRN (13:31)
[2019-07-05 14:13] LABS: Thyroid Stimulating Hormone 3.51 mcIU/mL (0.340-5.600)
[2019-07-05] MEDS ORDERED: Acetaminophen 325 MG TABLET PO PRN (14:51)
[2019-07-05] MEDS: 0.9 % Sodium Chloride 1,000 ML IVC SCH (15:31)
[2019-07-05] MEDS ORDERED: carvediloL 6.25 MG TABLET PO SCH (17:00)
[2019-07-05] MEDS: *HR* Heparin 5,000 UNIT/ML VIAL SQ SCH (17:47)
[2019-07-05] MEDS: levETIRAcetam 250 MG TABLET PO SCH (17:47)
[2019-07-05] MEDS: Ranolazine 500 MG TAB.ER.12H PO SCH (20:27)
[2019-07-06] MEDS ORDERED: Potassium Chloride Elixir 20 MEQ/15 ML UDC PO ONE (00:06)
[2019-07-06] MEDS: 0.9 % Sodium Chloride 1,000 ML IVC SCH ×3 (00:58→21:45)
[2019-07-06 04:15] LABS: Basophils % 0.5 %; Eosinophils # 0.1 K/mcL (0.0-0.6); Eosinophils % 1.7 %; Hematocrit 39.3 % (35.3-44.9); Hemoglobin 13.3 g/dL (11.5-15.4); Immature Granulocytes % 0.3 % (0-4); Lymphocytes # 1.6 K/mcL (0.6-4.6); Lymphocytes % 24.9 %; Mean Corpuscular HGB Conc 33.8 g/dL (31.6-35.5); Mean Corpuscular Volume 94.7 fL (83.0-100.0); Mean Platelet Volume 11.4 fL (9.4-12.4); Monocytes # 0.5 K/mcL (0.0-1.3); Monocytes % 7.2 %; Neutrophils # 4.2 K/mcL (1.6-8.9); Platelet Count 143 K/mcL (140-400); Red Blood Count 4.15 M/mcL (3.82-4.97); Red Cell Distribution Width 12.6 % (11.5-14.5); Segmented Neutrophils % 65.4 %; White Blood Count 6.4 K/mcL (4.3-11.1)
[2019-07-06 04:33] LABS: Calcium 8.4 mg/dL (8.6-10.3); Magnesium 1.8 mg/dL (1.6-2.6)
[2019-07-06] MEDS: levETIRAcetam 250 MG TABLET PO SCH ×2 (05:38→17:00)
[2019-07-06] MEDS: *HR* Heparin 5,000 UNIT/ML VIAL SQ SCH ×2 (05:38→16:58)
[2019-07-06] MEDS: Ranolazine 500 MG TAB.ER.12H PO SCH ×2 (08:09→20:07)
[2019-07-06] MEDS: Aspirin 81 MG TAB.CHEW PO SCH (08:10)
[2019-07-06] MEDS ORDERED: (Ezetimibe [Zetia] 10 MG) PO SCH (09:00)
[2019-07-07 05:37] LABS: Basophils % 0.7 %; Eosinophils # 0.1 K/mcL (0.0-0.6); Eosinophils % 2.5 %; Hematocrit 34.1 % (35.3-44.9); Immature Granulocytes % 0.7 % (0-4); Lymphocytes # 1.3 K/mcL (0.6-4.6); Lymphocytes % 32.8 %; Mean Corpuscular HGB Conc 33.4 g/dL (31.6-35.5); Mean Corpuscular Hemoglobin 31.9 pg (28.0-33.3); Mean Corpuscular Volume 95.5 fL (83.0-100.0); Mean Platelet Volume 11.6 fL (9.4-12.4); Monocytes # 0.3 K/mcL (0.0-1.3); Monocytes % 8.5 %; Neutrophils # 2.2 K/mcL (1.6-8.9); Platelet Count 111 K/mcL (140-400); Red Blood Count 3.57 M/mcL (3.82-4.97); Red Cell Distribution Width 12.8 % (11.5-14.5); Segmented Neutrophils % 54.8 %
[2019-07-07 05:42] LABS: Hemoglobin 11.4 g/dL (11.5-15.4)
[2019-07-07 05:52] LABS: BUN/Creatinine Ratio 20 (6-26); Blood Urea Nitrogen 20 mg/dL (8-23); Calcium 7.8 mg/dL (8.6-10.3); Carbon Dioxide 20 mEq/L (23-29); Chloride 117 mEq/L (98-107); Glucose 92 mg/dL (70-105); Osmolality,Calculated 294 (280-300); Potassium 3.8 mEq/L (3.5-5.1); Sodium 141 mEq/L (136-145); eGFR For African Americans > 60 (> 60); eGFR For Non-African Americans 55 (> 60)
[2019-07-07] MEDS: *HR* Heparin 5,000 UNIT/ML VIAL SQ SCH (06:37)
[2019-07-07] MEDS: levETIRAcetam 250 MG TABLET PO SCH (06:40)
[2019-07-07] MEDS: Ranolazine 500 MG TAB.ER.12H PO SCH (08:46)
[2019-07-07] MEDS: Aspirin 81 MG TAB.CHEW PO SCH (08:46)
[2019-07-07 11:54] VITALS: BP 101/63
== END 2019-07-07 14:03 | disposition home health service (06) | DRG 641 ==
LOC: EMEROOARM 10:00 → 3ANU 10:00 → SUATTDRO 13:28
PROVIDERS: ADMIT Family Medicine; ATTEND Internal Medicine